=== PATIENT | female | born 1990 | race American Indian/Alaskan Native ===

== ENCOUNTER 2017-06-02 00:19 | Emergency (ER) | payer MEDICAID ==
[2017-06-02 00:33] VITALS: BP 133/87
[2017-06-02 00:57] LABS: Basophils % (Auto) 0.3 % (0.0-1.8); Eosinophils % (Auto) 0.5 % (0.0-4.3); Hematocrit 40.2 % (30.3-42.9); Hemoglobin 12.9 gm/dl (10.1-14.3); Lymphocytes # (Auto) 1.5 K/mm3 (1.2-5.4); Lymphocytes % (Auto) 17.6 % (13.4-35.0); Mean Corpuscular HGB Conc 32 % (30-34); Mean Corpuscular Hemoglobin 30 pg (28-32); Mean Corpuscular Volume 94 fl (79-97); Monocytes # (Auto) 0.6 K/mm3 (0.0-0.8); Platelet Count 203 K/mm3 (140-440); Red Blood Count 4.29 M/mm3 (3.65-5.03); Red Cell Distribution Width 13.6 % (13.2-15.2)
[2017-06-02 01:09] LABS: HCG Qualitative,Urine Negative (Negative)
[2017-06-02 01:16] LABS: Alanine Aminotransferase 38 units/L (7-56); Albumin 4.2 g/dL (3.9-5); BUN/Creatinine Ratio 22; Blood Urea Nitrogen 11 mg/dL (7-17); Calcium 10.4 mg/dL (8.4-10.2); Hemolysis Index 4
[2017-06-02 01:17] LABS: Bacteria,Urine 2+ /HPF (Negative); Bilirubin,Urine NEG (Negative); Blood,Urine SM (Negative); Calcium Oxalate Crystals,Urine 3+; Color,Urine Yellow (Yellow); Mucus,Urine 2+ /HPF
[2017-06-02 01:18] LABS: RBC,Urine < 1.0 /HPF (0.0-6.0)
[2017-06-02] MEDS ORDERED: PEPCID PO ONE (01:28)
[2017-06-02] MEDS ORDERED: BENADRYL IM ONE (01:28)
[2017-06-02] MEDS ORDERED: DECADRON IM ONE (01:28)
[2017-06-02] MEDS ORDERED: MOTRIN PO ONE (01:28)
--- NOTE | 2017-06-02 01:28 | Emergency Department Report ---
ED Rash HPI - HPI Chief Complaint: Skin Rash Stated Complaint: RASH Time Seen by Provider: 06/02/17 01:21 Duration: Today Location: Back, Abdomen, Upper Extremities, Lower Extremities Suspected Cause: Unknown Rash Symptoms: Yes Itching, No Facial Swelling, No Tongue/Oral Swelling, No Breathing Difficulties, No Choking Sensation, No Wheezing/Dyspnea, No Peeling, No Blistering, No Fever, No Lightheaded, No Malaise, No Myalgias Severity: moderate Other History: 26-year-old female comes in noted to have a rash all over her body, (hives) within the last 24 hours. Patient complains of chills for the last 48 hours. Patient denies any exposure to [place] for his substance knee shampoos new foods or any other allergic triggers. Patient complains of body aches denies any fever, sneezing no coughing no shortness of breathing or wheezing. Patient has not taken any pain medication or Benadryl for her hives. Patient denies any past medical history currently takes no medications and has no known drug allergies ED Review of Systems ROS: Stated complaint: RASH Other details as noted in HPI Constitutional: chills. denies: fever Eyes: denies: eye pain, eye discharge, vision change ENT: denies: ear pain, throat pain Respiratory: denies: cough, shortness of breath, wheezing Cardiovascular: denies: chest pain, palpitations Endocrine: no symptoms reported Gastrointestinal: denies: abdominal pain, nausea, diarrhea Genitourinary: denies: urgency, dysuria, discharge Musculoskeletal: denies: back pain, joint swelling, arthralgia Skin: rash, pruritus Neurological: denies: headache, weakness, paresthesias Psychiatric: denies: anxiety, depression Hematological/Lymphatic: as per HPI ED Past Medical Hx - Past Medical History Previous Medical History?: No - Surgical History Past Surgical History?: No Additional Surgical History: - Social History Smoking Status: Never Smoker Substance Use Type: None - Medications Home Medications: Home Medications Medication Instructions Recorded Confirmed Last Taken Type Loratadine [Claritin] 10 mg PO DAILY #30 tablet 06/02/17 Unknown Rx methylPREDNISolone [Medrol] 4 mg PO QDAY #1 tab.ds.pk 06/02/17 Unknown Rx Rash Exam - Exam General: Vital signs noted. No distress. Alert and acting appropriately. HEENT: No Periorbital Edema, No Conjuctival Injection, No Chemosis, No Perioral Edema, No Tongue Edema, No Uvular Edema, No Compromised Airway, No Drooling Lungs: Yes Good Air Exchange (Normal Breath Sounds), No Wheezes, No Ronchi, No Stridor, No Cough, No Labored Respirations, No Retractions, No Use of Accessory Muscles, No Other Abnormal Lung Sounds Heart: No Regular (tachycardic), No Murmur Skin: Yes Urticarial Rash Other: Positive: Abdomen Normal, Neurologic Normal, Musculoskeletal Normal ED Course Vital Signs 06/02/17 00:24 Temperature 98.3 F Pulse Rate 115 H Respiratory 20 Rate Blood Pressure 133/87 Blood Pressure 133/87 [Right] O2 Sat by Pulse 98 Oximetry - Reevaluation(s) Reevaluation #1: 06/02/17 03:55 Patient reports she feels much better now she feels she is ready to be discharged ED Medical Decision Making - Lab Data Result diagrams: 06/02/17 00:44 06/02/17 00:44 - Medical Decision Making Patient has been evaluated by this provider fast track. CBC CMP and urinalysis and urine hCG is been done. I have given patient an order for Pepcid 20 mg, Benadryl 50 mg IM, and dexamethasone 8 mg IM. The reevaluate patient wants medications on board. Patient verbalized understanding. Critical care attestation.: If time is entered above; I have spent that time in minutes in the direct care of this critically ill patient, excluding procedure time. ED Disposition Clinical Impression: Urticaria Allergic reaction Qualifiers: Encounter type: initial encounter Qualified Code(s): T78.40XA - Allergy, unspecified, initial encounter Disposition: - TO HOME OR SELFCARE Is pt being admited?: No Does the pt Need Aspirin: No Condition: Stable Instructions: Urticaria (ED) Additional Instructions: She is take medication as prescribed. If rash persists or gets worse please follow back up to her primary care provider or the emergency room. Prescriptions: Loratadine [Claritin] 10 mg PO DAILY #30 tablet methylPREDNISolone [Medrol] 4 mg PO QDAY #1 tab.ds.pk Forms: Work/School Release Form(ED), Accompanied Note
== END 2017-06-02 03:59 | disposition home or self-care (01) ==
LOC: ED 00:19
DX: T78.40XA Allergy, unspecified, initial encounter (principal); L50.9 Urticaria, unspecified; Y92.89 Other specified places as the place of occurrence of the external cause
CPT/HCPCS: 36415; 80053; 81001; 81025; 85025; 96372; 99283; J1100; J1200

== ENCOUNTER 2017-09-17 18:36 | Emergency (ER) | payer MEDICAID ==
[2017-09-17] MEDS ORDERED: TYLENOL ONE (18:57)
[2017-09-17 18:58] VITALS: BP 130/89
[2017-09-17] MEDS ORDERED: TYLENOL PO ONE ×2 (18:58→19:00)
== END 2017-09-17 23:20 | disposition left against medical advice (07) ==
LOC: ED 18:36
DX: J02.9 Acute pharyngitis, unspecified (principal); R05 Cough; R09.81 Nasal congestion; Z53.21 Procedure and treatment not carried out due to patient leaving prior to being seen by health care provider